=== PATIENT | female | born 1965 | race Caucasian/White ===

== ENCOUNTER 2024-06-18 12:36 | Emergency (ER) | payer BC, SELFPAY ==
[2024-06-18 12:38] VITALS: BP 109/66; BMI 28.9
[2024-06-18 12:52] LABS: Glucose - Point of Care 115 mg/dl (70-99)
[2024-06-18 13:00] VITALS: BP 104/64
[2024-06-18 13:02] LABS: % Basophils 0.5 % (0-2); % Eosinophils 0.8 % (0-6); % Immature Granulocytes 0.4 % (0-0.5); % Lymphocytes 29.5 % (20.5-51.1); % Monocytes 8.7 % (1.7-9.3); % Neutrophils 60.1 % (42.2-75.2); Absolute Basophils 0.1 10^3/uL (0-0.2); Absolute Eosinophils 0.1 10^3/uL (0-0.7); Absolute Lymphocytes 2.7 10^3/uL (1.2-3.4); Absolute Monocytes 0.8 10^3/uL (0.1-0.6); Absolute Neutrophils 5.6 10^3/uL (1.4-6.5); Hematocrit 38.5 % (37.0-47.0); Hemoglobin 12.5 g/dL (12.0-16.0); Mean Corp Hgb Conc. 32.5 g/dL (33.0-37.0); Mean Corpuscular Hgb 22.9 pg (27.0-31.0); Mean Corpuscular Volume 70.6 fL (81.0-99.0); Mean Platelet Volume 9.2 fL (7.4-10.4); Nucleated Red Blood Cells % 0 %; Platelet Count 287 10^3/uL (130-400); Red Blood Cell Count 5.45 10^6/uL (4.20-5.40); Red Cell Dist. Width 14.1 % (11.5-14.5); White Blood Cell Count 9.2 10^3/uL (4.8-10.8)
[2024-06-18 13:15] LABS: ALT (SGPT) 22 U/L (0-35); AST (SGOT) 25 U/L (14-36); Albumin 4.5 g/dl (3.5-5.0); Alkaline Phosphatase 95 U/L (38-126); Blood Urea Nitrogen 42 mg/dl (7-17); Calcium 9.6 mg/dl (8.4-10.2); Carbon Dioxide 18 mmol/L (22-30); Chloride 102 mmol/L (98-107); Estimated Creatinine Clearance 47 ml/min; Glucose 119 mg/dl (70-99); Potassium 5.1 mmol/L (3.5-5.1); Sodium 132 mmol/L (135-145); Total Bilirubin 0.8 mg/dl (0.2-1.3); Total Protein 7.4 g/dl (6.3-8.2)
[2024-06-18 14:00] VITALS: BP 101/63
--- NOTE | 2024-06-18 14:34 | ED.GENMED ---
History of Present Illness
General
Chief Complaint: Fainting/Passed Out
Source: patient
Exam Limitations: none
Time Seen by Provider: 06/18/24 13:37
Nursing documentation reviewed up to this point in time: agreed with
History of Present Illness
History of Present Illness:
59-year-old female presents to the ER for evaluation of syncopal episode. Patient reports this morning she started to not feel well started to have abdominal discomfort like she had to have diarrhea. She sat on the toilet and broke out in a cold
sweat asked for a bottle of water from her daughter . patient had a witnessed syncopal episode in front of daughter for about 15 seconds of syncope.. She did not fall off the toilet or hit her head. pt had no complaints of chest pain /shortness
of breath prior to episode.
Patient reports recently she was told her hemoglobin A1c was elevated and she was a prediabetic and so she has drastically changed her diet and cut out carbohydrates. She also does not feel that she is drinking enough fluids. She is on blood
pressure medicine normally and did take her 40 mg of lisinopril this morning.
She denies any fever chills or recent sick contacts.
She had no associated headache with symptoms.
Review of Systems
Review of Systems
Allergies reviewed?: Yes
All Other Systems: ROS reviewed and negative except as documented in HPI and ROS
Constitutional: Reports no symptoms; Denies fever, fatigue or chills
EENT: Reports no symptoms
Respiratory: Reports no symptoms
Cardiac: Reports syncope
ABD/GI: Reports diarrhea
: Reports no symptoms
Musculoskeletal: Reports no symptoms
Skin: Reports no symptoms
Neurological: Reports no symptoms
Hematologic/Lymphatic: Reports no symptoms
Psychiatric: Reports no symptoms
Phy Exam
General Physical Exam
General Presentation: no apparent distress
General age: appears stated age
General Skin: warm and dry
General Habitus: normal
General Mental: alert
General Hydration: appears well hydrated
Cardiovascular Exam
Cardiovascular Exam: regular rate/rhythm, no murmur and normal peripheral pulses
Pulmonary Exam
Pulmonary Exam: lungs clear and no respiratory distress
Neurological Exam
Neurological Exam: alert and oriented x3
Musculoskeletal Exam
Musculoskeletal Exam: full ROM
Skin Exam
Skin Exam: normal color and warm/dry
Psychiatric Exam
Psychiatric Exam: normal mood/affect
Course
Orders/Labs/Results
Orders:
Orders
06/18/24 12:36
Electrocardiogram (*1) Urgent
Reason for Study: Syncope
06/18/24 12:37
EKG- Treatment ONCE
06/18/24 12:53
CMP [Comprehensive Metabolic Panel] Urgent
Complete Blood Count/With Diff Urgent
06/18/24 14:43
Orthostatic VS- Treatment ONCE
0.9% Sodium Chloride 1000 ml [Nss] 1,000 ml IV BOLUS
Abnormal Lab Results
06/18/24 06/18/24
12:48 12:53
RBC 5.45 H 10^6/uL
(4.20-5.40)
MCV 70.6 L fL
(81.0-99.0)
MCH 22.9 L pg
(27.0-31.0)
MCHC 32.5 L g/dL
(33.0-37.0)
Absolute Monos (auto) 0.8 H 10^3/uL
(0.1-0.6)
Sodium 132 L mmol/L
(135-145)
Carbon Dioxide 18 L mmol/L
(22-30)
BUN 42 H mg/dl
(7-17)
Creatinine 1.2 H mg/dL
(0.6-1.0)
Glucose 119 H mg/dl
(70-99)
POC Glucose 115 H mg/dl
(70-99)
06/18/24 12:53
06/18/24 12:53
Vital Signs
Initial and Last Documented VS:
Initial Vital Signs
Temp Pulse Resp BP Pulse Ox
98.2 F 72 20 109/66 98
06/18/24 12:38 06/18/24 12:38 06/18/24 12:38 06/18/24 12:38 06/18/24 12:38
Last Documented Vital Signs
Temp Pulse Resp BP Pulse Ox
98.2 F 71 13 101/63 100
06/18/24 12:38 06/18/24 14:45 06/18/24 14:45 06/18/24 14:00 06/18/24 14:45
Pediatric Associate consulted with Physician
Pediatric Associate consulted with physician?: Yes
Name of Physician Consulted: noh
MDM/Problems Addressed
Differential Diagnosis Includes:
Not limited to vasovagal syncope, electrolyte abnormality, hypotension
MDM/Problems Addressed:
As documented patient is a 59-year-old female yet who had episode of syncope while on the toilet. Patient had abdominal discomfort/had diarrhea broke out to a cold sweat and then had a syncopal episode witnessed by her daughter for 15 seconds no
head injury. No chest pain. Patient presents awake alert no acute distress very well-appearing she recently changed her diet and has been cutting a carb and also was not sure if she has been drinking enough fluids. Her blood pressure has been on
the lower side here in the ER and she normally takes lisinopril for history of elevated blood pressure. She was given fluids here and felt better no acute findings and EKG she is afebrile denies any recent illness. Her white count is normal her
hemoglobin is stable her BUN and creatinine are elevated at 42 and 1.2. She recently had blood work from [facility] and this is changed. Her blood work previously showed a BUN of 22. Her creatinine is baseline as of today.
Syncope likely from dehydration possible hypotension. Will have patient increase fluids and hold blood pressure medicine until seen and evaluated by family doctor discussed with patient the importance of having blood pressure and labs rechecked.
Case discussed with physician
*Critical Care Note
Total Time (30-74mins, 75-104mins- exclusive of procedures): Not Applicable
ED Attending Note
-
Portions of this chart may have been created with voice recognition software.� Occasional wrong word or��sound alike� substitutions may have occurred due to the inherent limitations of voice recognition software.
Discharge Plan
Departure
Patient Disposition: Home (Routine Discharge)
Date of Disposition: 06/18/24
Time of Disposition: 17:18
Patient with high blood pressure during this ER visit?: No
Covid-19: Not Applicable
Discharge Problem:
Syncope
Instructions: Syncope (Fainting) (DC)
Referrals:
Cedric Sherman MD [Family Provider] -
Activity Restrictions/Additional Instructions:
As discussed hold your blood pressure medication until seen and evaluated by your family doctor .
please follow-up with your family doctor in the next 1 to 2 days for reevaluation of your symptoms.
Also you will need your kidney function rechecked as it was elevated here in the ER. Stay well-hydrated.
Return if any worsening of symptoms
Interventions
Interventions:
*Risk Screen - Suicide Last Done: 06/18/24 12:38
*General Assessment Last Done: 06/18/24 12:38
*Neglect/Abuse Screening Last Done: 06/18/24 12:38
*ED- Fall Risk Assessment Last Done: 06/18/24 12:38
*ED COVID-19 Vaccine History Last Done: 06/18/24 12:38
ED- Cardiac Assessment Last Done: 06/18/24 12:56
ED- Neurological Assessment Last Done: 06/18/24 12:56
Discharge Date and Time
Print Language: L[place]
[2024-06-18] MEDS: NSS 1000 IV (15:03)
[2024-06-18 15:13] VITALS: BP 100/64; BP 107/71; BP 115/73; PULSE 72; PULSE 77; PULSE 89
[2024-06-18 17:13] VITALS: BP 125/84; BP 128/71; BP 137/86; PULSE 74; PULSE 78; PULSE 82
== END 2024-06-18 18:02 | disposition home or self-care (01) ==
LOC: EMR 12:36
PROVIDERS: Emergency Medicine; EMERGENCY PHYSICIAN Emergency Medicine; FAMILY PHYSICIAN Internal Medicine
DX: R55 Syncope and collapse (principal)
CPT/HCPCS: 99284; 96360; 80053; 82962; 85025; 93005

== ENCOUNTER 2024-06-21 13:01 | Emergency (ER) | payer BC, SELFPAY ==
[2024-06-21 13:07] VITALS: BP 163/89
[2024-06-21 13:19] VITALS: BP 137/87
--- NOTE | 2024-06-21 13:54 | ED.GENMED ---
History of Present Illness
General
Chief Complaint: Heart Rate Problem
Source: patient
Exam Limitations: none
Time Seen by Provider: 06/21/24 13:26
Nursing documentation reviewed up to this point in time: agreed with
History of Present Illness
History of Present Illness:
This is a 59-year-old female with past medical history of hypertension, hyperlipidemia, GERD, diabetes who presents emergency department today with concerns of palpitations. Patient states that this started 2 days ago, patient reports that she was
woken up from her sleep with a sensation of her heart racing. Patient also states that she has a generalized feeling of discomfort in her chest but denies pain, states this gets worse when she takes a deep breath. States that the palpitations are
intermittent and she did have an episode here in the ER before they did the EKG. She did not check her heart rate at home. Of note, patient was seen in our emergency department 4 days ago for syncopal episode. Patient also notes intermittent
shortness of breath when she feels palpitations. She denies any fevers or chills, coughing, abdominal pain, nausea, vomiting. She denies any diarrhea or constipation. Patient denies any recent long distance travel. She takes no exogenous
estrogen. Denies any recent surgeries or hospitalizations.
Review of Systems
Review of Systems
All Other Systems: ROS reviewed and negative except as documented in HPI and ROS
Phy Exam
Physical Exam
Physical Exam:
General: Patient is well appearing and in no acute distress; non-toxic
Skin: Warm and dry, no rashes or lesions
Head: Normocephalic, atraumatic
Eyes: Sclera non-icteric. EOMs intact.
Cardiac: Regular rate and rhythm, no murmurs
Peripheral Vascular: No lower extremity swelling or edema
Pulm: Normal respiratory effort, no wheezes, rales, rhonchi
Neuro: CN II-XII intact, no focal neurologic deficits.
Psychiatric: Appropriate mood and affect.
Course
Orders/Labs/Results
Orders:
Orders
06/21/24 13:02
EKG [Electrocardiogram (*1)] Urgent
Reason for Study: Palpitations
EKG- Treatment ONCE
06/21/24 13:50
CR Chest - 2 Views Urgent
Comment:
Reason For Exam: pleuritic discomfort
06/21/24 13:56
Complete Blood Count/With Diff Urgent
Comprehensive Metabolic Panel Urgent
D-Dimer Urgent
Magnesium Urgent
TSH Reflex To Free T4 Urgent
Troponin I Urgent
Abnormal Lab Results
06/21/24
13:56
WBC 10.9 H 10^3/uL
(4.8-10.8)
MCV 70.6 L fL
(81.0-99.0)
MCH 23.0 L pg
(27.0-31.0)
MCHC 32.6 L g/dL
(33.0-37.0)
Absolute Neuts (auto) 6.9 H 10^3/uL
(1.4-6.5)
Absolute Monos (auto) 0.8 H 10^3/uL
(0.1-0.6)
Sodium 133 L mmol/L
(135-145)
BUN 27 H mg/dl
(7-17)
Glucose 105 H mg/dl
(70-99)
06/21/24 13:56
06/21/24 13:56
Vital Signs
Initial and Last Documented VS:
Initial Vital Signs
Temp Pulse Resp BP Pulse Ox
98.0 F 76 16 163/89 98
06/21/24 13:07 06/21/24 13:07 06/21/24 13:07 06/21/24 13:07 06/21/24 13:07
Last Documented Vital Signs
Temp Pulse Resp BP Pulse Ox
98.0 F 75 11 122/76 100
06/21/24 13:07 06/21/24 15:30 06/21/24 15:30 06/21/24 15:00 06/21/24 15:30
MDM/Problems Addressed
Differential Diagnosis Includes:
Sinus tachycardia, atrial tachycardia, symptomatic PVCs, hypothyroidism, PE
MDM/Problems Addressed:
59-year-old female presents emergency department with concerns of palpitations for past 2 days. Associated with the pleuritic chest discomfort. On physical exam she is well-appearing in no acute distress her heart is regular rate and rhythm with
no murmurs. Her lungs are clear bilaterally. There is no lower extremity swelling or edema. CBC and CMP are unremarkable. She does have elevation in her BUN which she was concerned about as she did have a mild MARI when she was seen in our
emergency department for syncopal episode a few days ago however she was given IV fluids and this seems to have resolved. Troponin undetectable. TSH within normal limits electrolytes normal, D-dimer normal. Do not suspect PE or ACS. Reviewed
telemetry monitoring, does not appear to be any evidence of arrhythmia or PVCs. Discussed patient to continue to monitor her symptoms, she does have a follow-up appointment with her primary in 4 days. Gave her referral for cardiology to hopefully
get a Holter monitor to reassess for sensation of palpitations. Advised patient to monitor her heart rate at home. Patient stable for discharge.
Chronic conditions affecting care:
Hypertension, hyperlipidemia
Acute Exacerbation and/or Progression of Chronic Illness: Psychiatric illness
*Pulse Oximetry
Patient hypoxic: no
*Critical Care Note
Total Time (30-74mins, 75-104mins- exclusive of procedures): Not Applicable
Data Reviewed
Review of Other/Old Records Reveals: Records (Reviewed ER physician documentation from 06/18/2024 patient seen for syncope)
Source: patient and records
ED Attending Note
-
Portions of this chart may have been created with voice recognition software.� Occasional wrong word or��sound alike� substitutions may have occurred due to the inherent limitations of voice recognition software.
Discharge Plan
Departure
Patient Disposition: Home (Routine Discharge)
Date of Disposition: 06/21/24
Time of Disposition: 15:57
Patient with high blood pressure during this ER visit?: Yes
Condition: Good
Discharge Problem:
Palpitations
Instructions: Palpitations (DC), BLOOD PRESSURE
Referrals:
Enmanuel Peña MD [Active] - Call in 1-3 days for appt
Cedric Sherman MD [Family Provider] -
Activity Restrictions/Additional Instructions:
Please monitor your heart rate at home.
When you see your primary care provider next week, please let them know that you are seen here in emergency department.
Please call the attached number to see materials inspector in follow-up. You will likely need a Holter monitor for further evaluation
PLEASE RETURN EMERGENCY DEPARTMENT SHOULD YOU DEVELOP ANY ACUTE WORSENING OF HER SYMPTOMS, LIGHTHEADEDNESS, DIZZINESS, LOSS OF CONSCIOUSNESS, CONFUSION, WEAKNESS IN ONE-SIDED BODY VERSUS OTHER, INABILITY TO BREATHE, ANY OTHER SIGNS OR SYMPTOMS
WORRISOME TO YOU.
Interventions
Interventions:
*Risk Screen - Suicide Last Done: 06/21/24 13:07
*General Assessment Last Done: 06/21/24 13:17
*Neglect/Abuse Screening Last Done: 06/21/24 13:07
*ED- Fall Risk Assessment Last Done: 06/21/24 13:17
*ED COVID-19 Vaccine History Last Done: 06/21/24 13:17
*Nursing Disposition Last Done: 06/21/24 16:10
ED- Cardiac Assessment Last Done: 06/21/24 13:17
ED- Pulmonary Assessment Last Done: 06/21/24 13:17
Discharge Date and Time
Discharge Date/Time: 06/21/24 16:15
Print Language: SLOVENIAN
[2024-06-21 14:00] VITALS: BP 128/76
[2024-06-21 14:25] LABS: ALT (SGPT) 25 U/L (0-35); AST (SGOT) 30 U/L (14-36); Albumin 4.9 g/dl (3.5-5.0); Alkaline Phosphatase 87 U/L (38-126); Blood Urea Nitrogen 27 mg/dl (7-17); Calcium 10.1 mg/dl (8.4-10.2); Carbon Dioxide 25 mmol/L (22-30); Chloride 98 mmol/L (98-107); Glucose 105 mg/dl (70-99); Magnesium 2.1 mg/dl (1.6-2.3); Potassium 4.6 mmol/L (3.5-5.1); Sodium 133 mmol/L (135-145); Total Bilirubin 0.6 mg/dl (0.2-1.3); Total Protein 7.7 g/dl (6.3-8.2); eGFR > 60.00
[2024-06-21 14:27] LABS: % Basophils 0.5 % (0-2); % Eosinophils 1.3 % (0-6); % Immature Granulocytes 0.3 % (0-0.5); % Lymphocytes 27.6 % (20.5-51.1); % Monocytes 7.5 % (1.7-9.3); % Neutrophils 62.8 % (42.2-75.2); Absolute Basophils 0.1 10^3/uL (0-0.2); Absolute Eosinophils 0.1 10^3/uL (0-0.7); Absolute Monocytes 0.8 10^3/uL (0.1-0.6); Absolute Neutrophils 6.9 10^3/uL (1.4-6.5); Hematocrit 37.7 % (37.0-47.0); Hemoglobin 12.3 g/dL (12.0-16.0); Mean Corp Hgb Conc. 32.6 g/dL (33.0-37.0); Mean Corpuscular Volume 70.6 fL (81.0-99.0); Nucleated Red Blood Cells % 0 %; Platelet Count 264 10^3/uL (130-400); Red Blood Cell Count 5.34 10^6/uL (4.20-5.40); White Blood Cell Count 10.9 10^3/uL (4.8-10.8)
[2024-06-21 14:36] LABS: D-Dimer < 0.27 ug/mlFEU (0.00-0.50)
[2024-06-21 14:50] LABS: Troponin I < 0.012 ng/ml
[2024-06-21 14:55] LABS: TSH Reflex To Free T4 2.21 uIU/ml (0.47-4.68)
[2024-06-21 15:00] VITALS: BP 122/76
== END 2024-06-21 16:15 | disposition home or self-care (01) ==
LOC: EMR 13:01
PROVIDERS: Physician Assistant; EMERGENCY PHYSICIAN Emergency Medicine; FAMILY PHYSICIAN Internal Medicine
DX: R00.2 Palpitations (principal); I10 Essential (primary) hypertension; E78.00 Pure hypercholesterolemia, unspecified; K21.9 Gastro-esophageal reflux disease without esophagitis; E11.9 Type 2 diabetes mellitus without complications
CPT/HCPCS: 99283; 71046; 80053; 83735; 84443; 84484; 85025; 85379; 93005

== ENCOUNTER → 2024-10-02 07:09 | Outpatient (REF) | payer BC, SELFPAY | LOC: RCS 07:09 | PROVIDERS: ATTENDING PHYSICIAN Internal Medicine Cardiovascular Disease | DX: R55 Syncope and collapse (principal) | CPT/HCPCS: 93306 ==

== ENCOUNTER → 2024-10-09 07:20 | Outpatient (REF) | payer BC, SELFPAY | LOC: RCS 07:20 | PROVIDERS: ATTENDING PHYSICIAN Internal Medicine Cardiovascular Disease | DX: R06.09 Other forms of dyspnea (principal); R94.31 Abnormal electrocardiogram [ECG] [EKG] | CPT/HCPCS: 78452; 93017; A9500 ==